=== PATIENT | male | born 1995 | race Caucasian/White ===

== ENCOUNTER 2016-12-14 17:54 | Emergency (ER) | payer BC ==
--- NOTE | 2016-12-14 18:22 | UC ---
Shortness of Breath HPI - HPI Summary HPI Summary: The patient comes in today for: 1. Right shoulder pain: Onset: "A couple days if anything." Palliative/provocative: Rest makes it better. Tightening his pectoralis major muscles while lower his shoulder joints makes it worse. No Rx taken. Quality: Dull ache at rest. With tightening his pectoralis muscles there is more of a sharp. Region: Anterior, superior right shoulder. Severity: 1/10 at rest. With activity it will raise up but only "a little bit more." Time: Constant ("sort of"), but worsening with activity Associated symptoms: "I've been able to crack my shoulders ever since high school." Injury: None known. He goes to the gym regularly. The shoulder exercises are bench pressing, lateral raises, anterior adduction. Previous shoulder problems: None "more than usual." He states that he has "bad shoulders" while he was playing sports in middle school. * - History of Current Complaint Stated Complaint: SHOULDER PAIN Time Seen by Provider: 12/14/16 18:13 Hx Obtained From: Patient - Allergy/Home Medications Allergies/Adverse Reactions: Allergies Allergy/AdvReac Type Severity Reaction Status Date / Time No Known Allergies Allergy Verified 08/26/16 17:24 PMH/Surg Hx/FS Hx/Imm Hx Previously Healthy: No Endocrine History Of: Reports: Diabetes, Thyroid Disease - "Oversized thyroid" with normal labs. Denies: Hyperthyroidism, Hypothyroidism, Dyslipidemia Cardiovascular History Of: Denies: Cardiac Disorders, Hypertension, Pacemaker/ICD, Myocardial Infarction , Congestive Heart Failure, Atrial Fibrillation, Deep Vein Thrombosis, Bleeding Disorders Respiratory History Of: Denies: COPD, Asthma, Bronchitis, Pneumonia, Pulmonary Embolism GI/ History Of: Denies: Gastroesophageal Reflux, Ulcer, Gastrointestinal Bleed, Gall Bladder Disease, Kidney Stones, Diverticulitis, Renal Disease, Urosepsis Neurological History Of: Denies: TIA, CVA, Dementia, Seizures, Migraine Psychological History Of: Denies: Anxiety, Depression, Bipolar Disorder, Schizophrenia, Post Traumatic Stress Disorder Cancer History Of: Denies: Lung Cancer, Colorectal Cancer, Breast Cancer, Prostate Cancer, Cervical Cancer Other History Of: Negative For: HIV, Hepatitis B, Hepatitis C, Anticoagulant Therapy - Surgical History Surgical History: Yes Surgery Procedure, Year, and Place: wisdom teeth extraction - Family History Known Family History: Positive: Cardiac Disease, Hypertension, Diabetes Negative: Respiratory Disease - Social History Occupation: Employed Full-time Alcohol Use: Occasionally Substance Use Type: None Smoking Status (MU): Never Smoked Tobacco Review of Systems Constitutional: Negative Skin: Negative Eyes: Negative ENT: Negative Respiratory: Negative Cardiovascular: Negative Gastrointestinal: Negative Genitourinary: Negative Musculoskeletal: Arthralgia, Myalgia All Other Systems Reviewed And Are Negative: Yes Physical Exam Triage Information Reviewed: Yes Appearance: Well-Appearing, No Pain Distress, Well-Nourished Vital Signs Reviewed: Yes Eyes: Positive: Conjunctiva Clear. Negative: Discharge ENT: Negative: Hearing grossly normal, Pharyngeal erythema, Nasal congestion, Nasal drainage, TM bulging, TM dull, TM red, Tonsillar swelling, Tonsillar exudate Dental: Negative: Gross Decay/Caries @, Dental Fracture @ Neck: Positive: Supple, Nontender, No Lymphadenopathy, Other: - Thyroid is slightly enlarged?, but uniformly so. He is stocky build. Respiratory: Positive: Chest non-tender, Lungs clear, No respiratory distress, No accessory muscle use. Negative: Crackles, Wheezing Cardiovascular: Positive: RRR, No Murmur Abdomen Description: Positive: Nontender, No Organomegaly, Soft, Distended, Guarding Musculoskeletal: Positive: Strength Intact, ROM Intact, No Edema, Other: - Right shoulder: No atrophy. He has full range of motion of the right arm-- lateral and frontal abduction. Midline adduction of the right arm will make the anterior right shoulder pain worse. It is centered just medial and slightly under the anterior head of the deltoid muscle. Neurological: Positive: Alert, Muscle Tone Normal Psychological: Positive: Age Appropriate Behavior, Consolable Skin: Negative: rashes, breakdown Shortness of Breath Dx - Differential Dx/Diagnosis Provider Diagnoses: Right pectoralis muscle strain and/or tendonitis Discharge - Discharge Plan Condition: Stable Disposition: HOME Patient Education Materials: Musculoskeletal Pain (ED), Tendinitis (ED) Referrals: No Primary Care Phys,NOPCP [Primary Care Provider] - 1 Week (Please see your primary care provider in about three days to see how well you are doing. If you don't have a primary care provider, please contact the physician referral service. If you can't get in timely, please you may come back to see us until you can. If you get worse, please be seen sooner by us or the ER.) [facility] PH[facility]IAN [facility]ERR[facility] [Outside]
[2016-12-14 18:45] VITALS: BP 152/68
== END 2016-12-14 18:55 | disposition home or self-care (01) ==
LOC: UCEAST 17:54
DX: S46.911A Strain of unspecified muscle, fascia and tendon at shoulder and upper arm level, right arm, initial encounter (principal); X58.XXXA Exposure to other specified factors, initial encounter; Y93.9 Activity, unspecified; Y92.9 Unspecified place or not applicable; M75.81 Other shoulder lesions, right shoulder
CPT/HCPCS: 99212; G0463